=== PATIENT | female | born 1985 | race Two or more races ===

== ENCOUNTER 2022-02-28 12:29 | Outpatient (CLI) | payer OTHER | END 2022-02-28 12:40 | disposition home or self-care (01) | LOC: MAMO-SONO 12:29 | DX: Z12.31 Encounter for screening mammogram for malignant neoplasm of breast (principal); N60.11 Diffuse cystic mastopathy of right breast; N60.12 Diffuse cystic mastopathy of left breast ==

== ENCOUNTER 2022-03-18 07:24 | Outpatient (CLI) | payer OTHER | END 2022-03-18 07:41 | disposition home or self-care (01) | LOC: SONOGRAMA 07:24 | PROVIDERS: ATTEND Surgery | DX: D24.2 Benign neoplasm of left breast (principal); N60.11 Diffuse cystic mastopathy of right breast; N60.12 Diffuse cystic mastopathy of left breast ==

== ENCOUNTER 2022-12-27 15:26 | Outpatient (CLI) | payer OTHER | END 2022-12-27 15:37 | disposition home or self-care (01) | LOC: SONOGRAMA 15:26 | PROVIDERS: ATTEND Surgery | DX: N60.11 Diffuse cystic mastopathy of right breast (principal); N60.12 Diffuse cystic mastopathy of left breast ==